=== PATIENT | female | born 1980 | race Caucasian/White ===

== ENCOUNTER 2016-06-23 20:05 | Emergency (ER) | payer MEDICARE ==
[~2016-06-23] VITALS: Ht 152.4 cm; Wt 65.8 kg
[2016-06-23 20:11] VITALS: BP 121/78; PULSE 109; RESP 18; TEMP 98.3; O2SAT 96
[2016-06-23 22:45] VITALS: BP 118/78; PULSE 98; RESP 18; TEMP 98.3; O2SAT 96
== END 2016-06-23 22:45 | disposition home or self-care (01) ==
LOC: SED 20:05
DX: J06.9 Acute upper respiratory infection, unspecified (principal); R03.0 Elevated blood-pressure reading, without diagnosis of hypertension
CPT/HCPCS: 99283